=== PATIENT | female | born 2000 | race Caucasian/White ===

== ENCOUNTER 2022-07-01 16:18 | Emergency (ER) | payer BC, SELFPAY ==
[2022-07-01 16:19] VITALS: BP 120/84; PULSE 94; RESP 18; TEMP 37.2; O2SAT 96; BMI 17.6
--- NOTE | 2022-07-01 16:49 | EDS_ITS ---
HPI History of Present Illness Chief Complaint: Shortness of Breath Informant: patient Narrative Narrative: This is a young healthy person who has had a sore throat for about 1 to 2 days. She states she is kind of lost her voice. She describes the soreness with breathing through her mouth but she can breathe through her nose just fine. She does not feel at all short of breath breathing through her nose. She is able to eat and drink but it is sore when she swallows. But there is no difficulty swallowing. She handles her secretions fine. She has no fevers or chills. No rhinorrhea. No myalgias. She has no coughing. No chest pain. No swelling in her mouth or neck. She has had prior tonsil and adenoid surgery. No known exposures to illnesses but she is at the college here. Nothing consistently makes this worse. Drinking warm fluids does tend to make it better. PFSH PFS Allergy/AdvReac Type Severity Reaction Status Date / Time No Known Allergies Allergy Verified 07/01/22 16:19 Social History Smoking Status: Never smoker ROS ROS ED Constitutional Constitutional ED: Denies chills, fever(s) or subjective Eyes Eyes: Denies change in vision ENT ENT ED: Reports sore throat; Denies ear pain or rhinorrhea Cardiovascular Cardiovascular: Denies chest pain, palpitations or racing heartbeat Respiratory/Chest Respiratory/Chest: Reports other Details: See history of present illness. No dyspnea breathing through her nose. She just feels that it vieyra her throat when she breathes through her mouth. ; Denies cough Gastrointestinal Gastrointestinal: Denies abdominal pain, diarrhea, nausea or vomiting Genitourinary Genitourinary ED: Denies dysuria or hematuria Musculoskeletal Musculoskeletal: Denies arthralgias, myalgias or neck pain Integumentary Denies rash Neurologic Neurologic: Denies headache(s) Psychiatric Psychiatric: Reports anxiety Endocrine Endocrinology: Denies polydipsia or polyuria Hematologic/Lymphatic Hematologic/Lymphatic: Denies easy bleeding, easy bruising or lymphadenopathy Allergic/Immunologic Allergic/Immunologic ED: Denies mouth swelling, tongue swelling or urticaria EXAM Physical Exam Const Vital Signs: 07/01/22 16:19 07/01/22 16:59 Temperature 98.9 F Temperature Source Temporal Pulse Rate 94 Respiratory Rate 18 Respiratory Effort Normal Non-Labored Respiratory Pattern Normal Blood Pressure 120/84 H Blood Pressure Mean 96 Pulse Ox 96 Oxygen Delivery Method Room Air Room Air Positive well nourished and well developed Constitutional Narrative: Patient sitting quietly and comfortably on bed. No obvious trouble breathing. She looks nontoxic. General Appearance ED: well developed and NAD; Negative for cyanotic, diaphoretic or pallor HEENT Reports moist mucous membranes HEENT Narrative: Patient does have prior tonsillectomy. There is some minimal erythema. I hear no stridor. No intraoral swelling. I see no exudate. No sinus tenderness. No rhinorrhea. Eyes EOMs intact bilaterally General Eye ED: Negative for scleral icterus Neck no lymphadenopathy Neck Narrative: I feel no lymph nodes or swelling. There is no stridor when I listen over the anterior neck. No JVD. Chest Wall inspection of chest normal Resp normal respiratory effort and clear to auscultation bilaterally Resp Narrative: Completely clear breast bilaterally. No pain with a deep breath. Auscultation: Negative for rales, rhonchi or wheezes Cardio regular rate and regular rhythm Rhythm: abnormal rhythm GI normal to inspection, nondistended, normoactive bowel sounds and non-tender Palpation: soft Back/Spine no CVA tenderness Extremity General Extremety ED: Negative for edema or tenderness General Extremity: Negative for edema Neuro Sensorium / Orientation: alert Psych mental status grossly normal Skin no rashes or lesions noted General Skin Exam: Negative for jaundice or pallor MDM MDM MDM Narrative Medical decision making narrative: Flu, influenza, strep are negative. By symptoms patient likely has a viral illness. She has a sore throat with some laryngitis. She is able to eat and drink. No stridor. No trouble breathing. We did treat with Decadron. We discussed the timing of this. We also discussed returning if she is developing fevers, trouble swallowing or any other concerns. Lab Data Attestation: I reviewed the patient's lab results. Discharge Plan Triage Chief Complaint: Shortness of Breath ED Provider: All [facility] Dx/Rx/DC Orders Clinical Impression: Laryngitis Instructions: ED Laryngitis Primary Care Provider: Care Physician,No Primary Referrals: Care Physician,No Primary [Primary Care Provider] - Activity Restrictions/Additional Instructions: Follow-up with [facility]. Disposition Disposition: Home, Self Care
[2022-07-01] MEDS: dexAMETHasone 4 MG Tablet 10 MG PO (17:02)
[2022-07-01 17:59] VITALS: BP 120/84; PULSE 94; RESP 18; TEMP 37.2; O2SAT 96
[2022-07-01 18:19] VITALS: BP 116/80; PULSE 88; RESP 18
== END 2022-07-01 18:19 | disposition home or self-care (01) ==
PROVIDERS: Emergency Provider Emergency Medicine; Visit Provider Emergency Medicine
DX: R06.02 Shortness of breath (principal); J02.9 Acute pharyngitis, unspecified
CPT/HCPCS: 87428; 87880; 99283

== ENCOUNTER 2023-08-02 07:45 | Emergency (ER) | payer BC, SELFPAY ==
[2023-08-02 07:47] VITALS: BP 106/73; PULSE 112; RESP 16; TEMP 36.2; O2SAT 99; BMI 17.8
--- NOTE | 2023-08-02 08:06 | ED.VIS.BACK ---
HPI History of Present Illness Chief Complaint: Back Informant: patient Onset/Context/Timing Onset: Today Context: - (Woke up with pain across low back) Timing: Continuous Quality: Aching Narrative Narrative: Patient is a local college student, she states she has had urinary frequency, dysuria, and occasional minor hematuria with these symptoms for the past 6 days or so. She states she thought it was a urinary infection so she was treating it by drinking plenty of water. This morning she woke up with pain around her low back wrapping around to both sides, no abdominal pain, she states that hurts more to move and she has been walking like she is hunched over. She denies any bowel or bladder dysfunction other than the urinary symptoms she had prior to this, she vomited because the pain was so bad, she went to the wellness center and they gave her some ibuprofen she states the pain is a lot better now. No pain radiating down her legs. No numbness or tingling or weakness. She denies any injury she says she has an eating disorder and is not allowed to exercise so that she does not burn too many calories. She did not do anything she can think of yesterday that could result in low back muscular pain. Patient states she vomited once when the pain was significant but she has not been had nausea with this until that happened this morning. No fevers or chills. Back pain has not been lateralizing or worse on one side than the other. Patient states the wellness center dipped a urine sample prior to sending her to the ER, she dipped positive for blood and white blood cells according to the patient. Results of this were not sent with her or communicated to me or other staff here. [facility] Medical History (Updated 08/02/23 @ 09:[address] Yobani Lynne MD) Eating disorder Home Medications nitrofurantoin monohydrate/macrocrystals 100 mg capsule 100 mg PO Q12 #10 CAPSULES 08/02/23 [Rx Last Taken Unknown] Allergy/AdvReac Type Severity Reaction Status Date / Time No Known Allergies Allergy Verified 08/02/23 07:47 Social History Smoking Status: Never smoker ROS ROS ED Constitutional Constitutional ED: Denies chills or fever(s) Gastrointestinal Gastrointestinal: Reports vomiting; Denies abdominal pain, constipation, fecal incontinence or nausea Genitourinary Genitourinary ED: Reports dysuria, hematuria, urinary frequency and other Details: no urinary retention ; Denies abdominal discomfort or urinary incontinence Musculoskeletal Musculoskeletal: Reports as per HPI and back pain; Denies neck pain Integumentary Denies rash or wounds Neurologic Neurologic: Denies headache(s), paresthesias or weakness EXAM Physical Exam Const Vital Signs: 08/02/23 07:47 Temperature 97.1 F L Temperature Source Temporal Pulse Rate 112 H Respiratory Rate 16 Blood Pressure 106/73 Blood Pressure Mean 84 Pulse Ox 99 Oxygen Delivery Method Room Air Positive well nourished and well developed Constitutional Narrative: Well-appearing in no distress General Appearance ED: well developed and NAD HEENT Negative for trauma or tenderness Eyes PERRL and EOMs intact bilaterally Neck full ROM and supple Cardio regular rate and regular rhythm Rate: Negative for tachycardic GI normal to inspection, nondistended, normoactive bowel sounds, soft to palpation and non-tender Back/Spine normal to inspection and no thoracic nor lumbar tenderness General Back: Negative for CVA tenderness Lumbar Spine / Lower Back: ROM limited, paraspinal muscle tenderness and straight leg raise negative bilaterally; Negative for lumbar spinal tenderness Extremity normal to inspection, full ROM and no pedal edema Extremity Narrative: Patient able to walk, but she is hunched over with somewhat of an antalgic gait Neuro oriented x3 and no sensory deficits noted Sensorium / Orientation: alert Motor Exam: strength 5/5 throughout and clonus absent Deep Tendon Reflexes: Rt Patellar (L4): 2+, Lt Patellar (L4): 2+, Rt Ankle (S1): 2+ and Lt Ankle (S1): 2+ Deep Tendon Reflexes Back: Rt Patellar (L4): 2+, Lt Patellar (L4): 2+, Rt Ankle (S1): 2+ and Lt Ankle (S1): 2+ Plantar Reflex: Downgoing: bilateral Psych mental status grossly normal and thought process normal Skin no rashes or lesions noted and no wounds MDM MDM MDM Narrative Medical decision making narrative: This patient seems to be having musculoskeletal type pain, along with symptoms of cystitis. It is possible that she is simply having pain radiating into her back from her bladder as well that simply is hurting her worse to walk and move. She does not have pyelonephritis on exam. She is well-appearing. She states she had a vaginal discharge this past week that she treated with Monistat, she has had those from time to time and its not uncommon for her. She denies any possibility of an STI or , and she does not want tested for STIs. Urinalysis very consistent with infection. There is blood. She does not have gross hematuria. I do not think urolithiasis is in the differential diagnosis causing the symptoms given that she does not have any lateralizing symptoms. I discussed that with her, as well as the possibility of pyelonephritis, I do not think this is consistent with that, and I think treating her with Macrobid is reasonable given the complaints of yeast infection that she has had. If her back pain is related to the bladder infection which I think is most likely, it should get better with treatment. If it is musculoskeletal, supportive care advised along with treatment of the bladder infection. Follow-up as needed. Lab Data Attestation: I reviewed the patient's lab results. Labs: Laboratory Results - last 24 hr 08/02/23 08:17 Urine Color Yellow Urine Clarity Cloudy Urine pH 8.0 Ur Specific [place] 1.010 Urine Protein 100 H Urine Glucose (UA) Normal Urine Ketones 5 H Urine Occult Blood 150 H Urine Nitrite Negative Urine Bilirubin Negative Urine Urobilinogen Normal Ur Leukocyte Esterase 500 H Urine RBC 5-10 SEEN Urine WBC 25-50 SEEN Ur Squamous Epith Cells 0-5 SEEN Ur Transition Epith Cell 0 SEEN Urine Bacteria 1+ Urine Mucus 1+ Discharge Plan Triage Chief Complaint: Back ED Provider: Yobani Lynne Dx/Rx/DC Orders Clinical Impression: Cystitis, acute hemorrhagic Instructions: ED Cystitis Female Adult Prescriptions: New nitrofurantoin monohyd/m-cryst [nitrofurantoin monohyd/m-cryst] 100 mg capsule 100 mg PO Q12 Qty: 10 0RF Primary Care Provider: Care Physician,No Primary Referrals: [facility] [Group of Physicians] - 3-5 Days if not improving Care Physician,No Primary [Primary Care Provider] - Disposition Disposition: Home, Self Care
[2023-08-02 08:28] LABS: Color, Urine Yellow (Yellow); Glucose, Dipstick Normal (Normal); Ketone-Dipstick 5 mg/dl (Negative); Leukocyte Esterase-Dipstick 500 /ul (Negative); Nitrite-Dipstick Negative (Negative); Occult Blood-Urine 150 /ul (Negative); Protein-Dipstick 100 mg/dl (Negative); Urine Bilirubin Dipstick Negative (Negative); Urine Clarity Cloudy (Clear); Urine Urobilinogen Normal (Normal)
[2023-08-02 08:38] LABS: White Blood Cells 25-50 SEEN /hpf (0-5)
[2023-08-02 08:39] LABS: Bacteria 1+ /hpf (None Seen); Mucous, Urine 1+ /hpf (<or=2+); Red Blood Cells-Urine 5-10 SEEN /hpf (0-5); Squamous Epithelial Cells - UA 0-5 SEEN /hpf (5-10); Transitional Epithelial - Ur 0 SEEN /hpf (0-5)
== END 2023-08-02 09:29 | disposition home or self-care (01) ==
PROVIDERS: Emergency Provider Emergency Medicine; Visit Provider Emergency Medicine
DX: N30.00 Acute cystitis without hematuria (principal)
CPT/HCPCS: 81001; 99282